=== PATIENT | female | born 1970 | race African-American/Black ===

== ENCOUNTER 2016-07-13 15:02 | Emergency (ER) | payer OTHER ==
[~2016-07-13] VITALS: Ht 170.2 cm; Wt 77.9 kg
[~2016-07-13 15:02] MED LIST: AMOXICILLIN875 MG PO; AUGMENTIN875 MG PO; FLEXERIL10 MG PO; LOMOTIL TABLET1 EACH PO; MEDROL DOSEPAK4 MG PO; MOTRIN600 MG PO; NOHOMEMEDS; PERCOCET 5/31 TABLET PO; PREDNISONE10 MG PO; TORADOL10 MG PO; TYLENOL REGULA325 MG PO; TYLENOL WITH C1 EACH PO; ZOFRAN4 MG PO
[2016-07-13 15:39] LABS: HEMATOCRIT 42.5 % (36.0-46.0); MCH 29.2 PG (29.0-34.0); MCHC 33.4 G/DL (30.0-36.0); MCV 87.4 FL (83-99); MEAN PLAT.VOLUME 10.3 uM^3 (9.5-12.4); PLATELET COUNT 223 K/uL (156-360); RBC DIS.WIDTH-CV 12.9 % (11.8-14.6); RBC DIS.WIDTH-SD 40.9 % (39-53); RED BLOOD COUNT 4.86 M/uL (3.80-5.20); WHITE BLOOD COUNT 6.5 K/uL (4.1-10.2)
[2016-07-13 15:49] LABS: CHLORIDE 107 mEq/L (99-109); POTASSIUM 3.7 mEq/L (3.7-5.4); SODIUM 137 mEq/L (136-147)
[2016-07-13 15:51] LABS: GLUCOSE 101 mg/dL (70-99)
[2016-07-13 15:52] LABS: ANION GAP 8 MEQ/L (2-14); D-DIMER ELISA 1.02 mg/L FEU (< 0.57)
[2016-07-13 15:55] LABS: GFR ESTIMATE (CALCULATED) > 59 mL/min/
[2016-07-13 15:56] LABS: UREA NITROGEN (BUN) 13 mg/dL (9-23)
[2016-07-13 16:00] LABS: TROP-I INTERPRETATION NEGATIVE; TROPONIN-I 0.01 ng/mL (0.0-0.30)
[2016-07-13 16:03] LABS: QUANTITATIVE HCG < 4.0 MIU/ML
[2016-07-13] MEDS ORDERED: NAPROSYN500 MG PO (19:51)
[2016-07-13 20:02] LABS: TROP-I INTERPRETATION NEGATIVE; TROPONIN-I < 0.01 ng/mL (0.0-0.30)
[2016-07-13 20:13] VITALS: BP 126/80
== END 2016-07-13 20:15 | disposition home or self-care (01) ==
LOC: EME 15:02
PROVIDERS: Physician Assistant
DX: R09.1 Pleurisy (principal); M79.601 Pain in right arm; F17.200 Nicotine dependence, unspecified, uncomplicated
CPT/HCPCS: 71020; 71275; 80048; 84484; 84702; 85027; 85379; 93005; 99281; 99285; J1885

== ENCOUNTER 2016-07-31 11:13 | Emergency (ER) | payer OTHER ==
[~2016-07-31] VITALS: Ht 170.2 cm; Wt 76.1 kg
[~2016-07-31 11:13] MED LIST changes: +NAPROSYN500 MG PO
[2016-07-31] MEDS ORDERED: NAPROSYN500 MG PO (13:18)
[2016-07-31 14:11] VITALS: BP 152/95
== END 2016-07-31 14:12 | disposition home or self-care (01) ==
LOC: EME 11:13
DX: S93.602A Unspecified sprain of left foot, initial encounter (principal); X50.9XXA Other and unspecified overexertion or strenuous movements or postures, initial encounter; F17.200 Nicotine dependence, unspecified, uncomplicated
CPT/HCPCS: 73630; 99281; 99283

== ENCOUNTER 2017-03-11 10:31 | Emergency (ER) | payer OTHER ==
[~2017-03-11] VITALS: Ht 170.2 cm; Wt 81.3 kg
[2017-03-11 10:38] VITALS: BP 156/91
== END 2017-03-11 13:02 | disposition left against medical advice (07) ==
LOC: EME 10:31
DX: R10.9 Unspecified abdominal pain (principal); M54.9 Dorsalgia, unspecified; Z53.21 Procedure and treatment not carried out due to patient leaving prior to being seen by health care provider
CPT/HCPCS: 99281